=== PATIENT | female | born 1985 | race American Indian/Alaskan Native ===

== ENCOUNTER 2019-11-22 01:10 | Emergency (ER) | payer MEDICAID ==
[2019-11-22 01:26] VITALS: BP 148/100
== END 2019-11-22 01:25 | disposition left against medical advice (07) ==
LOC: ED 01:10
DX: J00 Acute nasopharyngitis [common cold] (principal); Z53.21 Procedure and treatment not carried out due to patient leaving prior to being seen by health care provider